=== PATIENT | male | born 1950 | race Hispanic/Latino ===

== ENCOUNTER 2024-08-24 12:45 | Emergency (ER) | payer MEDICARE ==
[~2024-08-24] VITALS: Ht 167.6 cm; Wt 59.0 kg
[2024-08-24] MEDS: ketOROlac 15MG/ML VIAL (15MG/ML) IM ONE (13:12)
[2024-08-24 14:37] VITALS: BP 130/70; PULSE 80; RESP 16; TEMP 98.3; O2SAT 98
== END 2024-08-24 15:16 | disposition home or self-care (01) ==
LOC: EDH 12:45
DX: G89.29 Other chronic pain (principal); M54.50 Low back pain, unspecified
CPT/HCPCS: 99284; 96372; J1885